=== PATIENT | male | born 1995 | race Hispanic/Latino ===

== ENCOUNTER 2017-08-13 20:46 | Inpatient (IN) | payer OTHER ==
[2017-08-13] VITALS (11 sets, daily range): BP systolic 136–146; BP diastolic 84–98
[~2017-08-13] VITALS: Ht 165.1 cm; Wt 59.0 kg
[2017-08-13] MEDS ORDERED: CEFAZOLIN SODIUM 1 GM VIAL ONE (20:51)
[2017-08-13] MEDS ORDERED: TETANUS/DIPHTHERIA TOXOID [ADULT] 0.5 ML VIAL IM ONE (20:52)
[2017-08-13 21:02] LABS: BASOPHILS % (AUTO) 0.4 % (0.0-5.0); EOSINOPHILS % (AUTO) 3.2 % (0.0-8.0); HEMATOCRIT 44.6 % (42-54); LYMPHOCYTES % (AUTO) 38.2 % (21.0-51.0); MEAN CORPUSCULAR HEMOGLOBIN 33.2 pg (27.0-33.0); MEAN CORPUSCULAR HGB CONC 33.5 g/dL (32.0-36.0); MEAN CORPUSCULAR VOLUME 99.2 fL (79-99); MONOCYTES % (AUTO) 7.7 % (3.0-13.0); NEUTROPHILS % (AUTO) 50.5 % (40.0-77.0); PLATELET COUNT (AUTO) 208 K/uL (130-400); RED CELL DISTRIBUTION WIDTH 13.2 % (11.0-15.5); WHITE BLOOD COUNT (AUTO) 11.9 K/uL (4.8-10.8)
[2017-08-13 21:12] LABS: CREATININE 1.4 mg/dL (0.5-1.5)
[2017-08-13 21:13] LABS: APPEARANCE,URINE CLEAR (CLEAR); BILIRUBIN,URINE NEGATIVE (NEGATIVE); COLOR,URINE YELLOW (YELLOW); GLUCOSE, URINE (UA) NEGATIVE (NEGATIVE); KETONES,URINE NEGATIVE (NEGATIVE); LEUKOCYTE ESTERASE ,URINE NEGATIVE (NEGATIVE); NITRATE,URINE NEGATIVE (NEGATIVE); OCCULT BLOOD,URINE TRACE-INTACT (NEGATIVE); PROTEIN,URINE 100 (NEGATIVE); UROBILINOGEN,URINE 0.2 mg/dL (0.2-1.0)
[2017-08-13 21:14] LABS: INR 0.95 (0.85-1.15); PARTIAL THROMBOPLASTIN TIME 23.3 SEC (26.3-35.5)
[2017-08-13 21:25] LABS: ALBUMIN 4.3 g/dL (3.5-5.0); BILIRUBIN,TOTAL 0.5 mg/dL (0.2-1.0); CREATINE KINASE MB 0.8 ng/mL (0.5-3.6); TOTAL PROTEIN, SERUM 8.2 g/dL (6.0-8.3)
[2017-08-13] MEDS ORDERED: LIDOCAINE PF 2% 5ML ABBOJECT ONE (21:34)
[2017-08-13] MEDS ORDERED: MIDAZOLAM HCL 1 MG/ML 2ML VIAL ONE (21:34)
[2017-08-13] MEDS ORDERED: GLYCOPYRROLATE 0.2 MG/ML 5 ML VIAL ONE (21:34)
[2017-08-13] MEDS ORDERED: DEXAMETHASONE SOD PHOSPHATE 10MG/ML 1ML VIAL ONE (21:34)
[2017-08-13] MEDS ORDERED: PROPOFOL 10 MG/ML 20ML VIAL IV ONE (21:34)
[2017-08-13] MEDS ORDERED: FENTANYL CITRATE PF 50 MCG/1 ML 2ML VIAL ONE ×2 (21:37→21:53)
[2017-08-13 21:44] LABS: AMPHET/METH SCREEN,URINE NEGATIVE (NEGATIVE); BARBITURATE SCREEN, URINE NEGATIVE (NEGATIVE); BENZODIAZEPINES SCREEN,URINE POSITIVE (NEGATIVE); CANNABINOID SCREEN,URINE POSITIVE (NEGATIVE); COCAINE SCREEN,URINE POSITIVE (NEGATIVE); OPIATE SCREEN,URINE NEGATIVE (NEGATIVE); PHENCYCLIDINE SCREEN,URINE NEGATIVE (NEGATIVE)
[2017-08-13 22:03] LABS: RBC,URINE 0-1 /HPF (0-1); WBC,URINE 0-1 /HPF (0-1)
[2017-08-13 22:04] LABS: BACTERIA,URINE Few /HPF (None Seen); SQUAMOUS EPITHELIAL CELL,UR Rare /HPF (0-2); TRANSITIONAL EPI CELLS,URINE Few /HPF (None Seen)
[2017-08-13] MEDS ORDERED: MEPERIDINE-PF 25 MG/ML SYG ONE ×2 (22:52→23:08)
[2017-08-14] VITALS (15 sets, daily range): BP systolic 127–158; BP diastolic 80–102
[2017-08-14] MEDS ORDERED: MORPHINE SULFATE 2 MG/ML 1ML SYG IVP PRN (03:15)
[2017-08-14] MEDS ORDERED: ONDANSETRON HCL MDV 20ML 2 MG/ML VIAL IVP PRN (03:15)
[2017-08-14] MEDS: LACTATED RINGERS 1000ML 1,000 ML IV SCH ×2 (03:54→13:21)
[2017-08-14] MEDS: CEFAZOLIN SODIUM 1 GM VIAL IVP SCH ×2 (03:55→13:20)
[2017-08-14] MEDS: MORPHINE SULFATE 4 MG/1ML SYG IVP PRN ×3 (04:02→13:38)
[2017-08-14 04:39] LABS: HEMATOCRIT 38.8 % (42-54); MEAN CORPUSCULAR HGB CONC 35.1 g/dL (32.0-36.0); MEAN CORPUSCULAR VOLUME 96.9 fL (79-99); PLATELET COUNT (AUTO) 160 K/uL (130-400); RED BLOOD CELL COUNT(AUTO) 4.01 MIL/uL (4.50-6.20); RED CELL DISTRIBUTION WIDTH 13.4 % (11.0-15.5); WHITE BLOOD COUNT (AUTO) 13.2 K/uL (4.8-10.8)
[2017-08-14 04:56] LABS: CREATININE 0.9 mg/dL (0.5-1.5)
[2017-08-14] MEDS ORDERED: DOCUSATE CALCIUM 240 MG CAP PO SCH (14:00)
[2017-08-14] MEDS: IBUPROFEN 800 MG TAB PO PRN (15:28)
[2017-08-14] MEDS: ACETAMINOPHEN-CODEINE 300/30MG TAB PO PRN (20:48)
[2017-08-15] MEDS: MORPHINE SULFATE 4 MG/1ML SYG IVP PRN (02:59)
[2017-08-15 03:00] VITALS: BP 126/72
[2017-08-15] MEDS: ACETAMINOPHEN-CODEINE 300/30MG TAB PO PRN ×2 (05:07→22:30)
[2017-08-15] MEDS: SENNOSIDES 8.6 MG TABLET PO SCH (07:35)
[2017-08-15] MEDS: IBUPROFEN 800 MG TAB PO PRN ×2 (07:41→14:53)
[2017-08-15 08:19] VITALS: BP 144/88
[2017-08-15 12:31] VITALS: BP 117/69
[2017-08-15 17:59] VITALS: BP 124/75
[2017-08-15 20:00] VITALS: BP 137/83
[2017-08-15 23:53] VITALS: BP 137/83
[2017-08-16 04:00] VITALS: BP 133/92
[2017-08-16 08:00] VITALS: BP 138/91
[2017-08-16] MEDS: ACETAMINOPHEN-CODEINE 300/30MG TAB PO PRN (08:35)
[2017-08-16] MEDS: SENNOSIDES 8.6 MG TABLET PO SCH (08:35)
[2017-08-16] MEDS ORDERED: POLYETHYLENE GLYCOL 3350 17 GM POWD.PACK PO SCH (09:00)
[2017-08-16] MEDS ORDERED: TYL3 PO (12:41)
[2017-08-16] MEDS ORDERED: DOCU240C25 PO (12:43)
[2017-08-16] MEDS ORDERED: SENN-175 PO (12:43)
[2017-08-16] MEDS ORDERED: IBUP-2077 PO (12:43)
== END 2017-08-16 15:15 | disposition home or self-care (01) | DRG 581 ==
LOC: EDH 20:46 → 3BH 20:47
PROVIDERS: ADMIT Surgery; ATTEND Surgery
PROC: 0JQ80ZZ Repair Abdomen Subcutaneous Tissue and Fascia, Open Approach (ICD-10-PCS; 2017-08-13)
PROC: 3E0234Z Introduction of Serum, Toxoid and Vaccine into Muscle, Percutaneous Approach (ICD-10-PCS; 2017-08-13)
PROC: 0WJP0ZZ Inspection of Gastrointestinal Tract, Open Approach (ICD-10-PCS; principal; 2017-08-13 21:52)
DX: S31.111A Laceration without foreign body of abdominal wall, left upper quadrant without penetration into peritoneal cavity, initial encounter (principal); Z23 Encounter for immunization; W26.9XXA Contact with unspecified sharp object(s), initial encounter
CPT/HCPCS: 36415; 71045; 80048; 80053; 80305; 81001; 82550; 82553; 84484; 85025; 85027; 85610; 85730; 86850; 86900; 86901; 90714; 93005; 99291; A4218; J0690; J1100; J2001; J2175; J2250; J2270; J2704; J3010; J3490; J7030; J7120

== ENCOUNTER 2017-08-29 17:26 | Emergency (ER) | payer OTHER ==
[~2017-08-29 17:26] MED LIST: DOCU240C25 PO; IBUP-2077 PO; SENN-175 PO; TYL3 PO
== END 2017-08-29 17:43 | disposition home or self-care (01) ==
LOC: EDH 17:26
DX: Z48.01 Encounter for change or removal of surgical wound dressing (principal); Z72.0 Tobacco use
CPT/HCPCS: 99281